=== PATIENT | female | born 1985 | race Caucasian/White ===

== ENCOUNTER 2022-01-01 21:31 | Inpatient (IN) ==
[2022-01-01] MEDS ORDERED: Lactated Ringers 1000 ml BAG 1,000 ML IV ONE (22:02)
[2022-01-01] MEDS ORDERED: Buffered Lidocaine 1% SYRIN 1 ml INTRADERM ONE (22:02)
[2022-01-01] MEDS ORDERED: Dinoprostone 10 MG VAG.SUPP VAGINAL ONE (22:02)
[2022-01-01] MEDS: Calcium Carb (TUMS) 500 mg CHEW TAB PO PRN (22:47)
[2022-01-01 22:52] LABS: Urine Appearance Cloudy; Urine Bilirubin Negative (Negative); Urine Blood Negative (Negative); Urine Color Yellow; Urine Glucose 1+(50 mg/dL) (Negative); Urine Ketones Negative (Negative); Urine Nitrite Negative (Negative); Urine Protein 1+(30 mg/dL) (Negative); Urine Specific Gravity 1.014 (1.002-1.030); Urine Urobilinogen Negative (Negative)
[2022-01-01 23:04] LABS: Urine Bacteria 1+ (Absent); Urine Red Blood Cell Trace(0-2/hpf) (Absent); Urine Squamous Epithelial Cell Present (Absent); Urine White Blood Cell Trace(0-5/hpf) (Absent)
[2022-01-01 23:10] LABS: Urine Benzodiazepine Screen None Detected (None Detect); Urine Cannabinoids Screen None Detected (None Detect); Urine Opiates Screen None Detected (None Detect)
[2022-01-02 00:06] LABS: ABS Lymphocytes 1.4 10^3/ul (1.0-4.8); ABS Monocytes 0.5 10^3/ul (0-0.8); ABS Neutrophils 4.5 10^3/ul (1.5-7.7); Eosinophil % 0.5 %; Hematocrit 34 % (35-47); Hemoglobin 11.7 g/dL (12.0-16.0); Lymphocyte % 21.9 %; Mean Corpuscular HGB Conc 35 g/dL (31-36); Mean Corpuscular Hemoglobin 31 pg (27-31); Mean Corpuscular Volume 90 fL (80-97); Mean Platelet Volume 6.9 fL (7.4-10.4); Platelet Count 282 10^3/uL (150-450); Red Blood Count 3.78 10^6 /uL (3.70-4.87); Red Cell Distribution Width 13 % (10-15); White Blood Count 6.4 10^3/uL (3.5-10.8)
[2022-01-02 00:29] LABS: Albumin 3.6 g/dL (3.2-5.2); Calcium 9.4 mg/dL (8.6-10.3); Globulin 2.2 g/dL (2-4); Potassium 3.6 mmol/L (3.5-5.0); Total Protein 5.8 g/dL (6.4-8.9); Uric Acid 3.7 mg/dL (2.3-6.6); eGFR CKD-EPI 123.6 (>60)
[2022-01-02 00:30] LABS: Albumin/Globulin Ratio 1.6 (1-3); Total Bilirubin 0.4 mg/dL (0.2-1.0)
[2022-01-02] MEDS: Calcium Carb (TUMS) 500 mg CHEW TAB PO PRN (21:21)
[2022-01-02] MEDS ORDERED: Lidocaine 1% MPF 5 ML VIAL ONE (23:08)
[2022-01-02] MEDS ORDERED: Oxytocin 10 UNITS/ML 1 ML VIAL IM ONE (23:32)
[2022-01-02] MEDS ORDERED: Witch Hazel PAD JAR TOPICAL PRN (23:32)
[2022-01-02] MEDS ORDERED: Glycerin ADULT 2.4 gm SUPP PR PRN (23:32)
[2022-01-02] MEDS ORDERED: Dibucaine 1% OINT 28.35 GM TUBE PR PRN (23:32)
[2022-01-02] MEDS ORDERED: Lactated Ringers 1000 ml BAG 1,000 ML IV SCH (23:45)
[2022-01-03] MEDS ORDERED: Lidocaine 1% MPF 5 ML VIAL ONE (01:51)
[2022-01-03 08:07] LABS: ABS Lymphocytes 1.2 10^3/ul (1.0-4.8); ABS Monocytes 0.8 10^3/ul (0-0.8); Eosinophil % 0.2 %; Hematocrit 31 % (35-47); Hemoglobin 11.1 g/dL (12.0-16.0); Lymphocyte % 12.4 %; Mean Corpuscular HGB Conc 36 g/dL (31-36); Mean Corpuscular Hemoglobin 32 pg (27-31); Mean Corpuscular Volume 90 fL (80-97); Mean Platelet Volume 6.9 fL (7.4-10.4); Platelet Count 269 10^3/uL (150-450); Red Blood Count 3.44 10^6 /uL (3.70-4.87); Red Cell Distribution Width 13 % (10-15)
[2022-01-04 13:37] VITALS: BP 122/68
== END 2022-01-04 13:55 | disposition home or self-care (01) | DRG 560 ==
LOC: MCHOBOUT 21:31 → MCHOB 21:35
PROVIDERS: ADMIT Obstetrics & Gynecology; ATTEND Obstetrics & Gynecology